=== PATIENT | male | born 1950 | race Caucasian/White ===

== ENCOUNTER → 2019-10-21 09:16 | Outpatient (CLI) | payer MEDICARE, OTHER ==
[2013-01-29 07:56] VITALS: BMI 31.9
--- NOTE | 2019-10-23 08:54 | EC ---
PATIENT:ENRIKE NAQVI DATE OF SERVICE: 10/21/19 SEX: M MEDICAL RECORD: [id number] DATE OF : [birth year] [facility] AGE OF PATIENT: 69 ADMISSION DATE: 10/21/19 REFERRING PHYSICIAN: INTERPRETING PHYSICIAN: TREE SHAIKH MD ECHOCARDIOGRAM REPORT ECHO CHARGES 4 ECHO COMPLETE Date: 10/21/19 CLINICAL DIAGNOSIS: HTN HX TRACE MR/TR ECHOCARDIOGRAPHIC MEASUREMENTS (adult normal given) AC root (d.<3.7cm) 2.9 cm LV Septum d (<1.2 cm> 1.5 cm Valve Excursion 1.7 cm LV Septum (systole) 1.6 cm Left Atria (s.<4.0cm> 4.0 cm LVPW d(<1.2cm) 1.6 cm RV (d.<2.3cm) 3.6 cm LVPW (sytole) 1.7 cm LV diastole(<5.6CM) 3.9 cm MV E-F(>70mm/sec) cm LV systole 2.8 cm LVOT Diameter 1.5 cm MV exc.(>10mm) 1.1 cm Est.ejection fraction (50-75%) % DOPPLER: LVIT cm/sec A 73.0 cm/sec E 37.0 cm/sec LA cm/sec RVSP 26 mmHg LVOT 90 cm/sec AOP1/2T m/s Asc. 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 Brownlee TAPE# PACS Pericardial Effusion N DATE OF SERVICE: Adequate 2-D Echo, Color-Flow Spectral Doppler, and M-Mode LVH is present. LV internal dimension is normal. Wall motion is normal. EF is greater than or equal to 55%. Aortic valve is tricuspid. No evidence of stenosis by Doppler interrogation. Left atrium appears normal at 4.0 cm. Mitral valve shows no prolapse. Trace MR. Right-sided chambers are grossly normal. Trace TR. ECHOCARDIOGRAM REPORT [id number] ENRIKE NAQVI TRANSINT:[id number] Voice Confirmation ID: [id number] DOCUMENT ID: [id number] TREE SHAIKH MD at 0854 CC: [id number] DICTATION DATE: 10/22/191311 CURRICULUM MANAGER: 10/22/191916 DEP CLI 10/21/19 [facility] [address] [place] [address]
== END | disposition home or self-care (01) ==
LOC: D.HCCECHO 09:16
PROVIDERS: ATTEND Internal Medicine Interventional Cardiology
DX: I10 Essential (primary) hypertension (principal)